=== PATIENT | female | born 1990 | race Caucasian/White ===

== ENCOUNTER 2021-01-24 10:31 | Emergency (ER) | payer OTHER, SELFPAY ==
[~2021-01-24] VITALS: Ht 165.1 cm; Wt 63.5 kg
[~2021-01-24 10:31] MED LIST: IBUP-2213 PO
--- NOTE | 2021-01-24 10:32 | NUR ---
Lexx nagy in ED - 01/24/21 at 1040 by PATTY Pt trans to room 06 from corinne roldan [facility]
[2021-01-24 10:34] VITALS: BP 145/76
--- NOTE | 2021-01-24 10:40 | NUR ---
PT AMBULATED TO RM 06
--- NOTE | 2021-01-24 10:44 | NUR ---
30 Y/O FEMALE BIB SELF FOR RLBACK 10/10 SHARP FLANK PAIN RADIATING TO RLABD. PT REPORTS N/V WITHOUR RED/BLACK/COFFEE COLOR TO EMESIS. ABD IS SOFT AND TENDER X 4 QUADRANTS TO TOUCH. + BS X 4 (NORMOACTIVE). PT IS PASSING FLATUS AT THIS TIME. PMHX: IUD, THROMBOCYTOPENIA SURGICAL HX: GALLBLADDER REMOVAL (2017) AND APENDIX REMOVAL (2019) HOME MEDS: DENIES
--- NOTE | 2021-01-24 10:56 | NUR ---
URINE COLLECTED AND IPPED. RESULTS SHOWN TO RIYA CRUZ AT THIS TIME
--- NOTE | 2021-01-24 10:57 | NUR ---
RIYA WONG AT BEDSIDE TO CONSULT WITH PT.
[2021-01-24] MEDS ORDERED: ONDANSETRON 4 MG/2 ML VIAL IVP ONE (11:05)
[2021-01-24] MEDS ORDERED: MORPHINE SULFATE 4 MG/ML SYR IVP ONE (11:05)
[2021-01-24] MEDS ORDERED: KETOROLAC 30 MG/ML VIAL IVP ONE (11:05)
[2021-01-24] MEDS ORDERED: NACL 0.9% 1,000 ML IV ONE (11:05)
--- NOTE | 2021-01-24 11:30 | NUR ---
PT REFUSED PAIN WAS RELIEVED BY MORPHINE
[2021-01-24 11:37] LABS: APPEARANCE,URINE HAZY (CLEAR); BILIRUBIN,URINE NEGATIVE (NEGATIVE); BLOOD, URINE 1+ (NEGATIVE); COLOR,URINE YELLOW (YELLOW); LEUKOCYTE ESTERASE ,URINE NEGATIVE (NEGATIVE); NITRITE, URINE NEGATIVE (NEGATIVE); UGLUCOSE NEGATIVE (NEGATIVE)
[2021-01-24 11:41] LABS: BASOPHILS % (AUTO) 0.2 % (0.0-2.0); EOSINOPHILS % (AUTO) 0.4 % (0.0-4.0); HEMATOCRIT 41.4 % (36-48); HEMOGLOBIN 14.4 g/dL (12.0-16.0); LYMPHOCYTES % (AUTO) 9.3 % (20.5-51.1); MEAN CORPUSCULAR HEMOGLOBIN 32 pg (27-31); MEAN CORPUSCULAR HGB CONC 35 g/dL (33-37); MEAN CORPUSCULAR VOLUME 92.7 fL (80-94); MONOCYTES # (AUTO) 0.3 K/uL (0.8-1.0); MONOCYTES % (AUTO) 2.6 % (1.7-9.3); NEUTROPHILS # (AUTO) 9.1 K/uL (1.8-7.7); NEUTROPHILS % (AUTO) 87.5 % (42.2-75.2); PLATELET COUNT (AUTO) 94 K/uL (140-450); RED BLOOD CELL COUNT(AUTO) 4.46 MIL/uL (4.20-5.40); RED CELL DISTRIBUTION WIDTH 12.6 % (11.6-13.7); WHITE BLOOD COUNT (AUTO) 10.4 K/uL (4.8-10.8)
[2021-01-24 11:51] LABS: ALBUMIN 4.1 g/dL (3.4-5.0); ANION GAP 16.6 (8-16); CARBON DIOXIDE 23.1 mmol/L (21-32); CREATININE 0.7 mg/dL (0.6-1.3); POTASSIUM 3.7 mmol/L (3.5-5.1); TOTAL BILIRUBIN 0.4 mg/dL (0.0-1.0)
[2021-01-24 11:59] LABS: RBC,URINE 0-5 /HPF (0-5); URINE AMORPHOUS URATE 2+ /HPF (None Seen); WBC,URINE 0-5 /HPF (0-5)
--- NOTE | 2021-01-24 12:27 | NUR ---
PT TAKEN TO CT IN [facility] BY TECH
[2021-01-24] MEDS ORDERED: PROCHLORPERAZINE 10 MG/2 ML VIAL IVP ONE (14:25)
--- NOTE | 2021-01-24 14:37 | NUR ---
US at bedside to perform exam.
--- NOTE | 2021-01-24 15:05 | NUR ---
Patient appears to be resting comfortably in bed, denies pain at this time. Vital Signs within normal limits. Respirations even and unlabored.
[2021-01-24] MEDS ORDERED: ONDA-188 SL (15:46)
[2021-01-24] MEDS ORDERED: NAPR-54 PO (15:46)
--- NOTE | 2021-01-24 16:01 | NUR ---
Patient appears to be resting comfortably in bed. Vital Signs within normal limits. Respirations even and unlabored. No c/o pain at this time.
--- NOTE | 2021-01-24 16:56 | NUR ---
Patient discharged with v/s stable. Written and verbal after care instructions given and explained. Patient alert, oriented and verbalized understanding of instructions. Ambulatory with steady gait. All questions addressed prior to discharge. ID band removed. Patient advised to follow up with PMD. Rx of NAPOSYN, ZOFRAN given. Patient educated on indication of medication including possible reaction and side effects. Opportunity to ask questions provided and answered.
[2021-01-24 16:57] VITALS: BP 113/73
== END 2021-01-24 16:57 | disposition home or self-care (01) ==
LOC: MED 10:31
DX: N83.201 Unspecified ovarian cyst, right side (principal); R11.2 Nausea with vomiting, unspecified; Z79.899 Other long term (current) drug therapy; Z90.49 Acquired absence of other specified parts of digestive tract
CPT/HCPCS: 36415; 74176; 76830; 80053; 81001; 81025; 83690; 85025; 96361; 96374; 96375; 99285; J0780; J2270; J2405; Q0092; J7030

== ENCOUNTER 2021-08-06 04:39 | Emergency (ER) | payer OTHER ==
[~2021-08-06] VITALS: Ht 165.1 cm; Wt 72.6 kg
[~2021-08-06 04:39] MED LIST changes: +NAPR-54 PO; +ONDA-188 SL
[2021-08-06 04:43] VITALS: BP 112/85
[2021-08-06] MEDS ORDERED: KETOROLAC 30 MG/ML VIAL IM ONE (05:15)
[2021-08-06] MEDS ORDERED: cephALEXin 500 MG CAP PO ONE (05:15)
[2021-08-06] MEDS ORDERED: CEPH-588 PO (05:18)
--- NOTE | 2021-08-06 05:28 | NUR ---
30 Y/O FEMALE BIBS FROM HOME, C/O ABD PAIN X3 DAYS. PT STATES SHE HAS CONSTANT CRAMPING/BLOATED FEELING THAT RADIATES TO HER BACK. DENIES N/V/D OR DYSURIA. PT STATES SHE FEELS THE URGE TO USE THE RESTROOM BUT IS UNABLE TO. A/OX4, GCS-15; AMBULATORY; NO RESPIRATORY DISTRESS; SKIN IS PINK/DRY/WARM. PT IS LAYING IN BED WITH BED IN LOWEST POSITION AND RAIL UP X1. HX: LOW PLATELETS NKA SX: CHOLECYSTECTOMY, APPENDECTOMY
[2021-08-06 06:07] VITALS: BP 112/85
--- NOTE | 2021-08-06 06:08 | NUR ---
Patient discharged with v/s stable. Written and verbal after care instructions given and explained. Patient alert, oriented and verbalized understanding of instructions. Ambulatory with steady gait. All questions addressed prior to discharge. ID band removed. Patient advised to follow up with PMD. Rx of KEFLEX given. Patient educated on indication of medication including possible reaction and side effects. Opportunity to ask questions provided and answered. VSS, A/OX4, UNLABORED BREATHING, AMBULATORY, AND CALM DEMEANOR.
== END 2021-08-06 06:06 | disposition home or self-care (01) ==
LOC: MED 04:39
DX: N39.0 Urinary tract infection, site not specified (principal); Z90.49 Acquired absence of other specified parts of digestive tract; Z72.89 Other problems related to lifestyle
CPT/HCPCS: 81002; 81025; 96372; 99283; J1885

== ENCOUNTER 2023-04-07 02:20 | Emergency (ER) | payer OTHER ==
[~2023-04-07] VITALS: Ht 165.1 cm; Wt 68.0 kg
[~2023-04-07 02:20] MED LIST changes: +CEPH-588 PO
[2023-04-07 02:33] VITALS: BP 134/68; PULSE 67; RESP 16; TEMP 98; O2SAT 97
[2023-04-07] MEDS ORDERED: ALUMINUM HYD/MAG/SIMETHICONE 30 ML UDC PO ONE (02:50)
[2023-04-07] MEDS ORDERED: DICYCLOMINE HCL LIQUID 10 MG/5 ML UDC PO ONE (02:50)
[2023-04-07] MEDS ORDERED: KETOROLAC 30 MG/ML VIAL IM ONE (02:50)
[2023-04-07] MEDS ORDERED: HALOPERIDOL IM 5 MG/ML VIAL IVP ONE (04:15)
[2023-04-07 05:10] VITALS: TEMP 98.7
[2023-04-07] MEDS ORDERED: METO-486 PO (05:25)
[2023-04-07 05:43] VITALS: BP 105/70; PULSE 80; RESP 14; O2SAT 99
== END 2023-04-07 05:43 | disposition home or self-care (01) ==
LOC: MED 02:20
DX: R11.0 Nausea (principal); R10.11 Right upper quadrant pain; Z79.899 Other long term (current) drug therapy
CPT/HCPCS: 81002; 81025; 96372; 96374; 99284; J1630; J1885